=== PATIENT | male | born 1970 | race Caucasian/White ===

== ENCOUNTER 2023-08-07 00:11 | Emergency (ER) | payer BC, SELFPAY ==
[2023-08-07] MEDS ORDERED: Diazepam 10 MG/2 ML SYRINGE ONE (00:50)
[2023-08-07] MEDS ORDERED: Ketorolac Tromethamine 30 MG/ML VIAL ONE (00:51)
[2023-08-07 01:05] LABS: #Basophils 0.1 10x3/uL (0.0-0.2); #Eosinphils 0.3 10x3/uL (0.0-0.5); #Monocytes 1.2 10x3/uL (0.0-1.1); #Neutrophils 12.7 10x3/uL (1.5-8.4); %Basophils 0.3 % (0.0-2.0); %Lymphocytes 14.6 % (18.0-47.0); %Neutrophils 75.7 % (40.0-75.0); Hematocrit 42.6 % (38.8-50.0); Hemoglobin 14.7 g/dL (13.5-17.5); Mean Corpuscular HGB CONC 34.5 g/dL (32.0-36.0); Mean Corpuscular Hemoglobin 29.5 pg (27.0-33.0); Mean Corpuscular Volume 85.5 fl (81.2-95.1); Mean Platelet Volume 9.3 fl (7.4-10.4); Platelet Count 343 10x3/uL (150-450); Red Blood Cell (RBC) Count 4.98 10x6/uL (4.32-5.72); White Blood Cell (WBC) Count 16.8 10x3/uL (3.5-10.5)
[2023-08-07 01:21] LABS: ALT (SGPT) 23 U/L (8-55); AST (SGOT) 25 U/L (5-34); Albumin 4.1 g/dL (3.5-5.0); Alkaline Phosphatase 71 U/L (40-110); Anion Gap 19 mmol/L (10-20); BUN (Urea Nitrogen) 22 mg/dL (8.4-25.7); Bilirubin, Total 1.4 mg/dL (0.2-1.2); CK (CPK) 303 U/L (30-200); Calc. Creatinine Clearance 0 mL/min (70-130); Calcium 8.3 mg/dL (7.8-10.44); Carbon Dioxide 16 mmol/L (22-29); Chloride 102 mmol/L (98-107); Estimated GFR 98; Globulin 2.7 g/dL (2.4-3.5); Glucose 98 mg/dL (70-105); Potassium 3.1 mmol/L (3.5-5.1); Protein, Total 6.8 g/dL (6.0-8.3); Sodium 134 mmol/L (136-145)
[2023-08-07 01:22] LABS: Acetaminophen Less than 10 mcg/mL (10.0-30.0); Alcohol Less than 10.0 mg/dL (Less than 10); Lipase 9 U/L (8-78); Magnesium 1.9 mg/dL (1.6-2.6); Salicylate Less than 8.0 mg/dL (15.0-30.0)
[2023-08-07 01:25] LABS: Troponin I Less than 0.010 ng/mL (< 0.028)
[2023-08-07] MEDS ORDERED: Iopamidol 300 61% 100 ML VIAL FS ONE (09:17)
== END 2023-08-07 04:48 | disposition home or self-care (01) ==
LOC: CSHERS 00:11
DX: E86.0 Dehydration (principal)
CPT/HCPCS: 74177; 80053; 80307; 82550; 83605; 83690; 83735; 84484; 85025; 93005; 96361; 96374; 96375; J1885; J3360; Q9967

== ENCOUNTER 2023-08-23 12:25 | Inpatient (IN) | payer SELFPAY ==
[~2023-08-23 12:25] MED LIST: Iopamidol 370 76% 100 ML VIAL ONE
[2023-08-23 12:47] LABS: #Basophils 0.1 10x3/uL (0.0-0.2); #Eosinphils 0.4 10x3/uL (0.0-0.5); #Monocytes 0.7 10x3/uL (0.0-1.1); #Neutrophils 6.1 10x3/uL (1.5-8.4); %Basophils 0.6 % (0.0-2.0); %Eosinophils 4.3 % (0.0-6.0); %Monocytes 7.2 % (0.0-10.0); %Neutrophils 61.6 % (40.0-75.0); Hematocrit 49.2 % (38.8-50.0); Hemoglobin 16.6 g/dL (13.5-17.5); Mean Corpuscular HGB CONC 33.7 g/dL (32.0-36.0); Mean Corpuscular Hemoglobin 29.5 pg (27.0-33.0); Mean Corpuscular Volume 87.5 fl (81.2-95.1); Mean Platelet Volume 9.1 fl (7.4-10.4); Platelet Count 383 10x3/uL (150-450); RBC Distribution Width 13.7 % (11.5-14.5); Red Blood Cell (RBC) Count 5.62 10x6/uL (4.32-5.72); White Blood Cell (WBC) Count 9.9 10x3/uL (3.5-10.5)
[2023-08-23 13:07] LABS: ALT (SGPT) 56 U/L (8-55); AST (SGOT) 41 U/L (5-34); Albumin 4.4 g/dL (3.5-5.0); Alkaline Phosphatase 85 U/L (40-110); Anion Gap 17 mmol/L (10-20); BUN (Urea Nitrogen) 15 mg/dL (8.4-25.7); Bilirubin, Total 0.7 mg/dL (0.2-1.2); Calc. Creatinine Clearance 0 mL/min (70-130); Calcium 9.7 mg/dL (7.8-10.44); Carbon Dioxide 22 mmol/L (22-29); Chloride 103 mmol/L (98-107); Estimated GFR 102; Globulin 3.5 g/dL (2.4-3.5); Glucose 112 mg/dL (70-105); Potassium 3.9 mmol/L (3.5-5.1); Protein, Total 7.9 g/dL (6.0-8.3); Sodium 138 mmol/L (136-145)
[2023-08-23] MEDS ORDERED: hydrALAZINE 20 MG/ML VIAL SLOW IVP PRN (14:24)
[2023-08-23] MEDS ORDERED: Aspirin Chewable 81 MG TAB ONE (14:25)
[2023-08-23] MEDS ORDERED: Aspirin 300 MG Suppository PR SCH (14:30)
[2023-08-23 15:32] LABS: PTT 29.8 sec (22.0-33.0); Prothrombin Time 10.3 sec (9.5-12.1)
[2023-08-23] MEDS ORDERED: Nicotine 14 MG PATCH TD SCH (17:30)
[2023-08-23 18:43] LABS: Amphetamine Not Detected (NotDetected); Barbiturates Screen Not Detected (NotDetected); Benzodiazepine Screen Not Detected (NotDetected); Cocaine Metabolite Screen Detected (NotDetected); Methadone Not Detected (NotDetected); Methamphetamine Not Detected (NotDetected); Opiate Screen Not Detected (NotDetected); Oxycodone Screen Not Detected (NotDetected); Phencyclidine (PCP) Not Detected (NotDetected); THC/Cannabinoid Screen Detected (NotDetected); Tricyclic Screen Not Detected (NotDetected)
[2023-08-23] MEDS ORDERED: Electrolyte Replacement Protocol 1 EACH FS PRN (20:15)
[2023-08-23] MEDS: Acetaminophen 325 MG TAB PO PRN (20:53)
[2023-08-23] MEDS ORDERED: Atorvastatin Calcium 40 MG TAB PO SCH (21:00)
[2023-08-24 04:36] LABS: Anion Gap 15 mmol/L (10-20); BUN (Urea Nitrogen) 15 mg/dL (8.4-25.7); Calc. Creatinine Clearance 154 mL/min (70-130); Calcium 9.5 mg/dL (7.8-10.44); Carbon Dioxide 24 mmol/L (22-29); Cardiac Risk 6.6 (Less than 4.5); Chloride 102 mmol/L (98-107); Cholesterol 224 mg/dl (< 200 Desired); Estimated GFR 104; Glucose 106 mg/dL (70-105); HDL Cholesterol 34 mg/dL (>60 Neg Risk); LDL Cholesterol, Calculated 148 mg/dL; Magnesium 2.2 mg/dL (1.6-2.6); Potassium 3.5 mmol/L (3.5-5.1); Sodium 137 mmol/L (136-145); Triglycerides 211 mg/dL (Less than 150)
[2023-08-24 04:41] LABS: Phosphorus 3.6 mg/dL (2.3-4.7)
[2023-08-24] MEDS ORDERED: Potassium Chloride 20 MEQ TAB PO SCH (08:00)
[2023-08-24 08:04] VITALS: BMI 28.7
[2023-08-24] MEDS ORDERED: BuPROPion XL 150 MG ER.TAB PO SCH (09:00)
[2023-08-24] MEDS ORDERED: FLUoxetine HCl 20 MG CAP PO SCH (09:00)
[2023-08-24] MEDS ORDERED: Aspirin 81 mg Enteric Coated Tablet PO SCH (09:00)
[2023-08-24] MEDS ORDERED: Aspirin 300 MG Suppository PR SCH (09:00)
[2023-08-24] MEDS: Acetaminophen 325 MG TAB PO PRN (12:03)
[2023-08-24 12:39] VITALS: TEMP 98
[2023-08-24 13:36] VITALS: BP 154/96
[2023-08-24 13:45] LABS: Hemoglobin A1c 5.6 % (4.0-6.0)
== END 2023-08-24 18:09 | disposition left against medical advice (07) | DRG 65 ==
LOC: CSHERS 12:25 → CSHIMCU 16:08 → CSHTELE 08-24 10:38
PROVIDERS: ADMIT Family Medicine; ATTEND Family Medicine
DX: I63.9 Cerebral infarction, unspecified (principal); G81.91 Hemiplegia, unspecified affecting right dominant side; I10 Essential (primary) hypertension; F32.A Depression, unspecified; F17.210 Nicotine dependence, cigarettes, uncomplicated; F12.129 Cannabis abuse with intoxication, unspecified; R00.1 Bradycardia, unspecified; R47.81 Slurred speech; Z90.49 Acquired absence of other specified parts of digestive tract; Z98.890 Other specified postprocedural states
CPT/HCPCS: 0042T; 36415; 36416; 70450; 70551; 80048; 80053; 80061; 80306; 83036; 83735; 84100; 85025; 85610; 85730; 93005; 93880; 94760; J1650; Q9967